=== PATIENT | male | born 1960 | race Caucasian/White ===

== ENCOUNTER 2021-11-25 10:18 | Emergency (ER) | payer OTHER ==
[~2021-11-25] VITALS: Ht 167.6 cm; Wt 80.5 kg
[~2021-11-25 10:18] MED LIST: OMEP20 PO
[2021-11-25] MEDS ORDERED: LOSA-381 PO (10:21)
[2021-11-25] MEDS ORDERED: METO25 PO (10:21)
[2021-11-25] MEDS ORDERED: HYDR25TA2 PO (10:21)
[2021-11-25 12:48] LABS: BASOPHILS % (AUTO) 0.8 % (0.0-2.0); EOSINOPHILS % (AUTO) 1.2 % (1.0-6.0); HEMATOCRIT 44.4 % (41-53); HEMOGLOBIN 15.2 g/dL (13.5-17.5); LYMPHOCYTES # (AUTO) 1.2 K/uL (1.0-4.8); LYMPHOCYTES % (AUTO) 19.7 % (22.0-44.0); MEAN CORPUSCULAR HEMOGLOBIN 31.2 pg (26.0-34.0); MEAN CORPUSCULAR HGB CONC 34.2 G/dL (31.0-37.0); MEAN CORPUSCULAR VOLUME 91 fL (80-100); MONOCYTES # (AUTO) 0.4 K/uL (0.1-1.0); MONOCYTES % (AUTO) 6.3 % (2.0-9.0); NEUTROPHILS # (AUTO) 4.3 K/uL (1.8-7.7); PLATELET COUNT (AUTO) 227 K/uL (150-450); RED BLOOD CELL COUNT(AUTO) 4.86 MIL/uL (4.50-5.90); RED CELL DISTRIBUTION WIDTH 14.5 % (11.5-14.5)
[2021-11-25] MEDS ORDERED: MECLIZINE HCL 25 MG TABLET PO ONE (13:00)
[2021-11-25] MEDS ORDERED: SODIUM CHLORIDE 0.9% 1,000 ML IV ONE (13:00)
[2021-11-25 13:17] LABS: ANION GAP 7 mmol/L (8-16); CALCIUM, TOTAL 8.8 mg/dL (8.8-10.5); CARBON DIOXIDE 30 mmol/L (22-29); CHLORIDE 102 mmol/L (98-107); GLOMERULAR FILTR. RATE CALC > 60 mL/min (>60); GLUCOSE,RANDOM 120 mg/dL (70-110); POTASSIUM 4.3 mmol/L (3.5-5.1); SODIUM SERUM 139 mmol/L (136-145); UREA NITROGEN, BLOOD 14 mg/dL (7-18)
[2021-11-25] MEDS ORDERED: IOHEXOL 350 MG/ML 100 ML VIAL ONE (13:32)
[2021-11-25] MEDS ORDERED: SODIUM CHLORIDE 0.9% 100 ML ONE (13:32)
[2021-11-25 13:35] LABS: PROTHROMBIN TIME 10.6 SEC (9.4-11.6)
[2021-11-25 13:42] LABS: ALANINE AMINOTRANSFERASE 19 U/L (12-78); ALKALINE PHOSPHATASE 94 U/L (46-116); ASPARTATE AMINOTRANSFERASE 15 U/L (15-37); BILIRUBIN,TOTAL 0.7 mg/dL (0.1-1.0); CREATINE KINASE, TOTAL ONLY 119 U/L (39-308); TOTAL PROTEIN, SERUM 7.6 g/dL (6.4-8.2)
[2021-11-25 13:44] LABS: APPEARANCE,URINE CLEAR (CLEAR); BILIRUBIN,URINE NEGATIVE (NEGATIVE); GLUCOSE, URINE (UA) NEGATIVE (NEGATIVE); KETONES,URINE NEGATIVE (NEGATIVE); LEUKOCYTE ESTERASE ,URINE NEGATIVE (NEGATIVE); NITRATE,URINE NEGATIVE (NEGATIVE); OCCULT BLOOD,URINE NEGATIVE (NEGATIVE); PH,URINE 6.5 (5.0-8.0); PROTEIN,URINE NEGATIVE (NEGATIVE)
[2021-11-25 13:54] LABS: B-TYPE NATRIURETIC PEPTIDE 23 pg/mL (0-100)
[2021-11-25 13:55] LABS: PLATELET MORPHOLOGY COMMENT LARGE PLTS PRESENT
[2021-11-25] MEDS ORDERED: ASPIRIN 325 MG DR TABLET PO ONE (15:00)
[2021-11-25 15:40] VITALS: BP 133/71
== END 2021-11-25 15:20 | disposition left against medical advice (07) ==
LOC: EMS 10:24
DX: I71.2 Thoracic aortic aneurysm, without rupture (principal); G43.909 Migraine, unspecified, not intractable, without status migrainosus; F17.210 Nicotine dependence, cigarettes, uncomplicated; Z86.73 Personal history of transient ischemic attack (TIA), and cerebral infarction without residual deficits
CPT/HCPCS: 36415; 70496; 70498; 71045; 80053; 81003; 82550; 83880; 84484; 85025; 85610; 85730; 93005; 96360; 99291; J7030; J7050; Q9967

== ENCOUNTER 2023-08-16 09:32 | Emergency (ER) | payer MEDICARE, OTHER ==
[~2023-08-16] VITALS: Ht 167.6 cm; Wt 72.7 kg
[~2023-08-16 09:32] MED LIST changes: +HYDR25TA2 PO; +LOSA-381 PO; +METO25 PO
[2023-08-16 09:39] VITALS: TEMP 97.5
[2023-08-16] MEDS ORDERED: ASPI-1444 PO (09:39)
[2023-08-16] MEDS ORDERED: OMEP20CA12 PO (09:39)
[2023-08-16] MEDS ORDERED: HYDR12.54 PO (09:39)
[2023-08-16] MEDS ORDERED: ATOR20TA65 PO (09:39)
[2023-08-16] MEDS ORDERED: CARV25TA32 PO (09:39)
[2023-08-16] MEDS ORDERED: LOSA100T59 PO (09:39)
[2023-08-16] MEDS ORDERED: BACITRACIN 0.9 GM PACKET OINTMENT TP ONE (10:00)
[2023-08-16] MEDS ORDERED: DOXYCYCLINE HYCLATE 100 MG TABLET PO ONE (10:00)
[2023-08-16 10:06] VITALS: BP 113/76; PULSE 74; RESP 16
[2023-08-16] MEDS ORDERED: DOXY-354 PO (10:16)
== END 2023-08-16 10:25 | disposition home or self-care (01) ==
LOC: EMS 09:42
DX: L03.011 Cellulitis of right finger (principal); G43.909 Migraine, unspecified, not intractable, without status migrainosus; F17.210 Nicotine dependence, cigarettes, uncomplicated; Z90.49 Acquired absence of other specified parts of digestive tract; Z98.890 Other specified postprocedural states
CPT/HCPCS: 10060; 99283